=== PATIENT | female | born 1970 | race Caucasian/White ===

== ENCOUNTER → 2023-08-21 15:36 | Outpatient (REF) | payer OTHER, SELFPAY | LOC: RAD 15:36 | PROVIDERS: ATTENDING PHYSICIAN Nurse Practitioner | DX: J45.909 Unspecified asthma, uncomplicated (principal) | CPT/HCPCS: 71046 ==

== ENCOUNTER 2024-01-01 18:35 | Emergency (ER) | payer OTHER, SELFPAY ==
[2024-01-01 18:38] VITALS: BP 154/98
--- NOTE | 2024-01-01 19:14 | ED.GENMED ---
History of Present Illness
General
Chief Complaint: Rabies
Source: patient
Time Seen by Provider: 01/01/24 18:45
History of Present Illness
History of Present Illness:
53-year-old female presenting to the emergency department for rabies vaccine administration after she woke from a nap earlier this evening and there was a bat in her bathroom and she noticed a scratch on the left side of her face that she did not
have when she initially went to sleep. Patient has no other concerns. She does not believe the bat is still in her house and unable to contact animal control for testing.
Past History
Past History
ED Past Medical History: None
ED Past Surgical History: None
Social History
Tobacco: Non-smoker
Alcohol: Occasional
Drug: None
Personal: Single
Living: alone
Review of Systems
Review of Systems
All Other Systems: ROS reviewed and negative except as documented in HPI and ROS
Phy Exam
Physical Exam
Physical Exam:
GENERAL: Alert , in no apparent distress
EYE: conjunctiva clear
Head: Normocephalic atraumatic
NECK: Supple,
ENT: mmm.
LUNGS: no acute respiratory distress
NEUROLOGICAL: Alert and oriented
SKIN: Warm and dry, very small scratch to the left lower portion of the chin without bleeding
MUSCULOSKELETAL: well perfused.
PSYCH: Normal and appropriate interaction.
Scores
Heart Failure Risk
Heart Failure Risk Score: Not Applicable
Heart Score for Chest Pain Patients
STEMI patient?: Not applicable
Withdrawal Assessment of Alcohol
Withdrawal Assessment Completed?: Not applicable
Course
Orders/Labs/Results
Orders:
Orders
01/01/24 19:47
Rabies Immune Globulin/Pf [HyperRAB] 2,280 unit IM NOW STA
01/01/24 20:00
Rabies Vaccine (Pcec)/Pf [Rabavert Rabies Vacc W-Diluent] 2.5 unit IM .ONCE ONE
Vital Signs
Initial and Last Documented VS:
Initial Vital Signs
Temp Pulse Resp BP Pulse Ox
97.8 F 77 18 154/98 100
01/01/24 18:38 01/01/24 18:38 01/01/24 18:38 01/01/24 18:38 01/01/24 18:38
Last Documented Vital Signs
Temp Pulse Resp BP Pulse Ox
97.8 F 78 16 148/78 97
01/01/24 18:38 01/01/24 20:00 01/01/24 20:00 01/01/24 20:00 01/01/24 20:00
MDM/Problems Addressed
MDM/Problems Addressed:
53-year-old female presenting to the emergency department for rabies vaccine administration. Discussed risk versus benefit of the vaccination and patient ultimately still wishes to pursue vaccine. Discussed dates to return for repeat
administration of the vaccine. Patient is otherwise stable for discharge home
*Pulse Oximetry
Patient hypoxic: no
*Critical Care Note
Total Time (30-74mins, 75-104mins- exclusive of procedures): Not Applicable
ED Attending Note
-
Portions of this chart may have been created with voice recognition software.� Occasional wrong word or��sound alike� substitutions may have occurred due to the inherent limitations of voice recognition software.
Discharge Plan
Departure
Patient Disposition: Home (Routine Discharge)
Date of Disposition: 01/01/24
Time of Disposition: 19:14
Patient with high blood pressure during this ER visit?: Yes
Discharge Problem:
Need for prophylactic vaccination against rabies
Instructions: Rabies
Referrals:
Dillan Cobos MD [Family Provider] -
Stand Alone Forms: Rabies Vaccine Post Exp Dosing
Interventions
Interventions:
*Risk Screen - Suicide Last Done: 01/01/24 18:38
*Neglect/Abuse Screening Last Done: 01/01/24 18:38
ED- Fall Risk Assessment Last Done: 01/01/24 20:00
*ED COVID-19 Vaccine History Last Done: 01/01/24 18:41
*Nursing Disposition Last Done: 01/01/24 20:18
Discharge Date and Time
Discharge Date/Time: 01/01/24 20:18
Print Language: MONEGASQUE
[2024-01-01 20:00] VITALS: BP 148/78
[2024-01-01] MEDS: RABAVERT RABIES VACC W-DILUENT 2.5 UNIT IM (20:07)
[2024-01-01] MEDS: HyperRAB 2280 UNIT IM (20:08)
== END 2024-01-01 20:18 | disposition home or self-care (01) ==
LOC: EMR 18:35
PROVIDERS: EMERGENCY PHYSICIAN Student in an Organized Health Care Education/Training Program; FAMILY PHYSICIAN Internal Medicine
DX: Z20.3 Contact with and (suspected) exposure to rabies (principal); Z23 Encounter for immunization; Z29.14 Encounter for prophylactic rabies immune globulin
CPT/HCPCS: 99282; 90471; 96372; 90375; 90675

== ENCOUNTER 2024-01-09 09:58 | Outpatient (RCR) | payer OTHER, SELFPAY ==
[2024-01-05 11:06] VITALS: BP 144/85
[2024-01-05] MEDS: RABAVERT RABIES VACC W-DILUENT 2.5 UNIT IM (11:16)
[2024-01-09 10:08] VITALS: BP 149/96
[2024-01-09] MEDS: RABAVERT RABIES VACC W-DILUENT 2.5 UNIT IM (10:22)
== END 2024-01-10 23:59 | disposition home or self-care (01) ==
LOC: OID 09:58
PROVIDERS: ATTENDING PHYSICIAN Student in an Organized Health Care Education/Training Program; FAMILY PHYSICIAN Internal Medicine
DX: Z20.3 Contact with and (suspected) exposure to rabies (principal); Z23 Encounter for immunization
CPT/HCPCS: 90471; 90675

== ENCOUNTER 2024-01-15 14:41 | Outpatient (RCR) | payer OTHER, SELFPAY ==
[2024-01-15 14:52] VITALS: BP 129/89
[2024-01-15] MEDS: RABAVERT RABIES VACC W-DILUENT 2.5 UNIT IM (15:01)
== END 2024-01-16 10:25 | disposition home or self-care (01) ==
LOC: OID 14:41
PROVIDERS: ATTENDING PHYSICIAN Student in an Organized Health Care Education/Training Program; FAMILY PHYSICIAN Internal Medicine
DX: Z20.3 Contact with and (suspected) exposure to rabies (principal); Z23 Encounter for immunization
CPT/HCPCS: 90471; 90675